=== PATIENT | female | born 1985 | race Two or more races ===

== ENCOUNTER 2022-08-18 11:28 | Emergency (ER) | payer MEDICAID, SELFPAY ==
[2022-08-18 11:35] VITALS: BP 123/80; PULSE 85; RESP 20; TEMP 36.8; O2SAT 98; BMI 30.2
--- NOTE | 2022-08-18 11:50 | PC.NURSE ---
at the bedside with building maintenance repairer
[2022-08-18 12:00] VITALS: BP 140/83; PULSE 85; O2SAT 98
--- NOTE | 2022-08-18 12:15 | HMH.EDGENADL ---
Discharge Plan Disposition Patient Disposition: Home, Self-Care Prescriptions Prescriptions: New ondansetron 4 mg tablet,disintegrating 4 mg PO Q6H PRN (Reason: nausea and vomiting) 5 Days Qty: 20 0RF meclizine 25 mg tablet 25 mg PO TID PRN (Reason: dizziness) Qty: 20 0RF Referrals Follow up/Referrals: Provider,Referral, MD [Primary Care Provider] - See instructions Activity Restrictions/Add. Instructions Additional Instructions/Restrictions: Return with any worsening symptoms. Clinical Impressions Clinical Impression: Benign paroxysmal positional vertigo, Nausea & vomiting, Dehydration, moderate Discharge ED Provider: Ayush Toure General Adult HPI General Chief complaint: Dizziness Stated complaint: Dizzy, vomiting w/blood, sweating Time Seen by Provider: 08/18/22 11:46 Mode of Arrival: Ambulatory Source of Information: Patient Limitations: No Limitations Description of Symptoms (Recalled from ER Triage Doc. by RN): pt to ed c/o dizziness and weakness x3 days. pt states she has a headache today associated. pt reports being 3m pp from an unmedicated vaginal delivery. pt denies any complications. History of Present Illness HPI narrative: Patient is a 37-year-old female brought in for vertiginous symptoms nausea vomiting and epigastric abdominal discomfort. History is primarily obtained through the patient and the patient's with a professional medical laboratory specialist. Patient states this is been ongoing for the last several days and started all at the same time with a vertiginous sensation which she describes as rotary sensation not as lightheadedness and then subsequently had nausea vomiting and epigastric abdominal discomfort. She has not had any changes in coordination or vision. She is 3 months has not had any complications since her . She and her state that the reason she came in today is because she is having such severe vertigo that she is having a difficult time doing normal tasks including taking care of the baby. She denies any fevers or chills any lateralization of her abdominal discomfort or any significant tenderness. She still having good bowel movements and passing gas. There is no postprandial aspect of this pain. States that the symptoms are dramatically worsened with any movement of her head. Related Data Previous Rx's Medication Instructions Recorded meclizine 25 mg tablet 25 mg PO TID PRN dizziness #20 tabs 08/18/22 ondansetron 4 mg disintegrating 4 mg PO Q6H PRN nausea and 08/18/22 tablet vomiting 5 days #20 tabs Allergies Allergy/AdvReac Type Severity Reaction Status Date / Time INGREDIENT: NO KNOWN - NO Allergy Unknown Uncoded 02/07/17 15:25 KNOWN DRUG ALLERGY [facility] Disclaimer: The information contained in this section may have been updated after the patient was seen, as this information can be updated by other users. Social History Smoking Status: Never smoker alcohol intake: never current occupational status: other Travel in the last 8 weeks: None ROS Obtained: Yes All systems reviewed & no additional complaints except as documented Physical Exam General General appearance: alert Respiratory Respiratory exam: Present normal lung sounds bilaterally Cardiovascular Cardiovascular exam: Present regular rate; Absent tachycardia Neurological Exam Neurological exam: Present alert, oriented X3 and CN II-XII intact Expanded Neurological Exam Patient oriented to: Present person, place and time Speech: Present fluid speech Cranial nerves: Normal: EOM function (II, III, IV, ), facial sensation (V), facial palsy (VII), gag reflex (IX), spinal accessory function (XI) and tongue deviation (XII) Cerebellar function: Normal: finger to nose and heel to [place] Motor strength - LUE: 5/5 Motor strength - RUE: 5/5 Motor strength - LLE: 5/5 Motor strength - RLE: 5/5 Upper motor neuron exam: Normal: georges neglect and pronator drift
[2022-08-18 12:24] LABS: Basophils # 0.1 K/mm3 (0-0.2); Basophils % 0.6 % (0.1-2.0); Eosinophils # 0.1 K/mm3 (0.0-0.4); Eosinophils % 1.2 % (0.1-12.0); Hematocrit 43.5 % (37.0-47.0); Hemoglobin 13.9 g/dL (12.2-16.2); Lymphocytes # 2.6 K/mm3 (0.7-4.5); Lymphocytes % 27.6 % (10-50); Mean Corpuscular HGB Conc 32.1 g/dL (31.8-35.4); Mean Corpuscular Hemoglobin 30.5 pg (27.0-31.2); Mean Corpuscular Volume 95.1 fl (81-99); Mean Platelet Volume 8.3 fl (7.4-10.4); Monocytes # 0.3 K/mm3 (0.1-1.0); Monocytes % 3.6 % (1.7-9.3); Neutrophils # 6.3 K/mm3 (1.8-7.8); Platelet Count 297 K/mm3 (142-424); Red Blood Count 4.58 M/mm3 (4.20-5.40); White Blood Count 9.5 K/mm3 (4.8-10.8)
[2022-08-18 12:25] LABS: HCG Qualitative, Serum Negative (Negative)
[2022-08-18 12:26] LABS: Alanine Aminotransferase 121 U/L (12-78); Albumin Level 4.5 g/dl (3.5-5.0); Albumin/Globulin Ratio 1.1 (1.1-1.8); Alkaline Phosphatase 91 U/L (38-126); Anion Gap 13.5 mEq/L (5-15); Aspartate Amino Transferase 97 U/L (14-36); Bilirubin,Total 0.6 mg/dl (0.2-1.3); Blood Urea Nitrogen 8 mg/dl (7-17); Calcium 8.8 mg/dl (8.4-10.2); Carbon Dioxide 29 mmol/L (22.0-30.0); Chloride 102 mmol/L (98-107); Creatinine Clearance Estimated 141 mL/min (50-200); Estimated Glomerular Filt Rate 112 ml/min (>60); GFR (African American) 135 ML/MIN (>60); Globulin 4.1 g/dL (1.3-3.2); Glucose 103 mg/dl (74-100); Potassium 4.5 mmoL/L (3.5-5.1); Sodium 140 mmol/L (136-145); Total Protein,Serum 8.6 g/dl (6.3-8.2)
[2022-08-18 12:30] VITALS: BP 117/76; PULSE 76; O2SAT 96
[2022-08-18 12:52] LABS: Lipase 46 U/L (23-300)
[2022-08-18 13:00] VITALS: BP 109/71; PULSE 67; O2SAT 98
--- NOTE | 2022-08-18 13:01 | PC.NURSE ---
Rounded on patient; no needs at this time, call [place] within reach. Family at BS
[2022-08-18 13:33] VITALS: BP 108/71; PULSE 69; RESP 20; TEMP 36.8; O2SAT 98
== END 2022-08-18 13:34 | disposition home or self-care (01) ==
PROVIDERS: Emergency Provider Student in an Organized Health Care Education/Training Program
DX: E86.0 Dehydration (principal); H81.10 Benign paroxysmal vertigo, unspecified ear; R11.2 Nausea with vomiting, unspecified; R53.1 Weakness; R10.13 Epigastric pain
CPT/HCPCS: 80053; 83690; 84703; 85025; 96361; 96374; 99284; 99285; J2405